=== PATIENT | male | born 1970 | race Two or more races ===

== ENCOUNTER 2017-10-09 15:08 | Emergency (ER) | payer OTHER ==
[2017-10-09] MEDS: BUPIVACAINE 0.5% 50 ML VIAL. INFIL (15:44)
[2017-10-09] MEDS ORDERED: GELATIN SPONGE SIZE 100. (15:46)
[2017-10-09] MEDS: MORPHINE SULFATE 10 MG/ML VIAL. IV (15:46)
[2017-10-09] MEDS: DIPHTH,PERTUSS(ACELL),TET TOX 0.5 ML DISP.SYRIN. VAX IM (16:48)
== END 2017-10-09 18:01 | disposition home or self-care (01) ==
LOC: ER 15:08
DX: S62.637A Displaced fracture of distal phalanx of left little finger, initial encounter for closed fracture (principal); W31.9XXA Contact with unspecified machinery, initial encounter; Y93.89 Activity, other specified; Y92.89 Other specified places as the place of occurrence of the external cause; Y99.8 Other external cause status
CPT/HCPCS: 12001; 73130; 90471; 90715; 96374; 99284; J2270; J3490